=== PATIENT | male | born 1970 | race Caucasian/White ===

== ENCOUNTER 2022-03-04 14:34 | Emergency (ER) | payer OTHER ==
[~2022-03-04] VITALS: Ht 160 cm; Wt 70.3 kg
[2022-03-04 14:51] VITALS: BP 134/89
[2022-03-04] MEDS ORDERED: ONDA-188 PO (15:15)
[2022-03-04] MEDS ORDERED: BISM262C53 PO (15:15)
[2022-03-04] MEDS ORDERED: FAMO-90 PO (15:15)
--- NOTE | 2022-03-04 15:30 | NUR ---
51Y/O MALE BIB SELF C/O DIARRHEA XYESTERDAY, STATES 10/13 ABD PAIN CRAMPING IN THE LOWER ABD, DENIES 0N/V. DENIES TAKING MEDS FOR SYMPTOMS, DENIES FEVERS, CHILLS, OTHER URINARY SYMPTOMS PMH: PRE DIABETIC NKA
[2022-03-04 15:40] VITALS: BP 134/89
--- NOTE | 2022-03-04 15:41 | NUR ---
Patient discharged with v/s stable. Written and verbal after care instructions given and explained. Patient alert, oriented and verbalized understanding of instructions. Ambulatory with steady gait. All questions addressed prior to discharge. ID band removed. Patient advised to follow up with PMD. Rx of ZOFRAN ODT, PEPCID, PEPTO-BISMOL TO-GO given. Patient educated on indication of medication including possible reaction and side effects. Opportunity to ask questions provided and answered.
== END 2022-03-04 15:41 | disposition home or self-care (01) ==
LOC: MED 14:34
DX: K52.9 Noninfective gastroenteritis and colitis, unspecified (principal)
CPT/HCPCS: 99283